=== PATIENT | male | born 1950 | race Caucasian/White ===

== ENCOUNTER → 2018-08-27 | Outpatient (CLI) | payer MEDICARE ==
[~2018-08-27] MED LIST: ASCO100019 PO; ASPI-496 PO; CHOL10002 PO; HYDR1TAB13 PO; ISOS20TA58 PO; LISI-467 PO; METO-93 PO; NITR0.4T28; OMEG500C PO; RASA1TAB2 PO
== END | disposition home or self-care (01) ==
LOC: ION 14:10 → EDSTATUS 15:04 → RAD 15:15
PROVIDERS: ATTEND Neurological Surgery
DX: M51.36 Other intervertebral disc degeneration, lumbar region (principal); M54.16 Radiculopathy, lumbar region; M48.061 Spinal stenosis, lumbar region without neurogenic claudication; M41.86 Other forms of scoliosis, lumbar region
CPT/HCPCS: 72082; 72110

== ENCOUNTER 2020-08-23 13:58 | Day surgery (SDC) | payer MEDICARE ==
[~2020-08-23] VITALS: Ht 185.4 cm; Wt 113.8 kg
[~2020-08-23 13:58] MED LIST changes: +ATOR40TA78 PO; +CARB1TAB25 PO; +CARB1TAB44 PO; +CYCL10TA2 PO; +FURO20TA3 PO; +GABA300C PO; +GABA600T7 PO; +OXYC5TAB98 PO; +POTA20TA89 PO; +RIVA20TA PO; +TERB250T14 PO
[2020-08-23] MEDS ORDERED: CHLORHEXIDINE 15 ML UDC ONE (14:23)
[2020-08-23] MEDS ORDERED: FENTANYL PF 100 MCG/2ML ONE (14:25)
[2020-08-23] MEDS ORDERED: MIDAZOLAM 1 MG/ML, 2ML ONE (14:25)
[2020-08-23 14:27] VITALS: BP 178/95
[2020-08-23] MEDS ORDERED: OXYcodone 5 MG/5 ML ORAL.SOL UDC PO PRN (14:30)
[2020-08-23] MEDS ORDERED: PROMETHAZINE 25 MG/ML, 1ML IVPush PRN (14:30)
[2020-08-23] MEDS ORDERED: LACTATED RINGERS 1,000 ML IV SCH (14:30)
[2020-08-23] MEDS ORDERED: KETOROLAC 30 MG/1 ML IVPush PRN (14:30)
[2020-08-23] MEDS ORDERED: HYDROcodone/APAP 7.5-325MG/15ML UDC PO PRN (14:30)
[2020-08-23] MEDS ORDERED: MEPERIDINE/PF 25MG/0.5ML IVPush PRN (14:30)
[2020-08-23] MEDS ORDERED: ACETAMINOPHEN 325 MG TABLET PO PRN (14:30)
[2020-08-23] MEDS ORDERED: CHLORHEXIDINE 15 ML UDC PO ONE (14:30)
[2020-08-23] MEDS ORDERED: ONDANSETRON 2MG/ML, 2ML IVPush PRN (14:30)
[2020-08-23] MEDS ORDERED: HYDROmorphone 1 MG/ML, 1ML INJ IVPush PRN (14:30)
[2020-08-23] MEDS ORDERED: FENTANYL PF 100 MCG/2ML IV PRN (14:30)
[2020-08-23] MEDS ORDERED: GLYCOPYRROLATE 0.2MG/1ML, 5ML ONE (15:06)
[2020-08-23] MEDS ORDERED: PROPOFOL 10 MG/ML, 20ML ONE (15:06)
[2020-08-23] MEDS ORDERED: SUCCINYLCHOLINE 20 MG/ML, 10ML ONE (15:06)
[2020-08-23] MEDS ORDERED: ONDANSETRON 2MG/ML, 2ML ONE (15:06)
[2020-08-23] MEDS ORDERED: ROCURONIUM 10MG/ML,5ML ONE (15:06)
[2020-08-23] MEDS ORDERED: CEFAZOLIN 1,000 MG ONE (15:06)
[2020-08-23] MEDS ORDERED: NEOSTIGMINE 1 MG/ML, 10ML ONE (15:06)
[2020-08-23] MEDS ORDERED: DEXAMETHASONE 4 MG/ML, 1ML ONE (15:06)
[2020-08-23] MEDS ORDERED: OMNIPAQUE 350 MG/ML, 50 ML BOTTLE ONE (15:26)
[2020-08-23] MEDS ORDERED: hydrALAzine 20 MG/ML, 1ML ONE ×2 (16:55→20:58)
[2020-08-23] MEDS ORDERED: METOPROLOL TARTRATE 50 MG TAB PO ONE (19:30)
[2020-08-23] MEDS ORDERED: hydrALAzine 20 MG/ML, 1ML IV ONE (21:00)
== END 2020-08-23 22:30 | disposition home or self-care (01) ==
LOC: OR 13:58
PROVIDERS: ATTEND Urology
DX: N20.0 Calculus of kidney (principal); Q60.0 Renal agenesis, unilateral; I10 Essential (primary) hypertension; M19.90 Unspecified osteoarthritis, unspecified site; Z79.01 Long term (current) use of anticoagulants; Z79.899 Other long term (current) drug therapy; Z86.718 Personal history of other venous thrombosis and embolism
CPT/HCPCS: 52356; 74420; C1726; C1769; C2617; J0330; J0360; J0690; J1100; J2405; J2704; J2710; J3010; J7120; Q9967; J2250